=== PATIENT | female | born 1950 | race Caucasian/White ===

== ENCOUNTER 2020-06-21 08:22 | Observation (INO) ==
--- NOTE | 2020-05-24 09:18 | PAT Medication Instructions ---
Medication Instructions Date of Service May 24, 2020 Home Medications cholecalciferol (vitamin D3) [Vitamin D3] 25 mcg PO QAM levothyroxine 100 mcg PO QAM rosuvastatin 5 mg PO QAM valsartan-hydrochlorothiazide 1 tab PO QAM DO NOT take the morning of surgery cholecalciferol (vitamin D3) [Vitamin D3] 25 mcg PO QAM valsartan-hydrochlorothiazide 1 tab PO QAM Take morning of surgery With a small sip of water, OTHERWISE NOTHING TO EAT OR DRINK AFTER MIDNIGHT: levothyroxine 100 mcg PO QAM rosuvastatin 5 mg PO QAM Other Notes If you have any questions please call us at [phone] or [phone] or [phone] or [phone]
--- NOTE | 2020-05-27 10:21 | Anesthesiology Consultation ---
Date of Service May 27, 2020 Assessment & Plan (1) Encounter for pre-operative examination: Chart Review Chart Review: Acceptable Risk for Surgery (pending preop Covid testing ) and Patient seen in Pre Admission Testing Per PAT appt on 05/27/20, patient resides in [facility]. No known Covid positive contacts or Covid related symptoms. Educated patient to follow up with surgeon's office regarding Covid testing. Educated on importance of self quarantining, social distancing and wearing mask in public both for the patient and household contacts. Teaching & Discussion Pre-Anesthesia Teaching/Discussion Notes: Instructed NPO after midnight before surgery,except medications with 15 cc of water. Medication instructions provided according to the PAT guidelines. History Surgery Operation Date: 06/21/20 08:50 Proposed Procedures p Right Total Knee Arthroplasty - Jim Elkins MD Height/Weight Height: 5 ft 6 in Weight: 81.8 kg Allergies Allergy/AdvReac Type Severity Reaction Status Date / Time No Known Allergies Allergy Verified 05/23/20 15:05 Medications Home Medications Medication Instructions Recorded Confirmed Last Taken cholecalciferol (vitamin D3) 25 mcg PO QAM 05/23/20 05/23/20 Unknown [Vitamin D3] levothyroxine 100 mcg PO QAM 05/23/20 05/23/20 Unknown rosuvastatin 5 mg PO QAM 05/23/20 05/23/20 Unknown valsartan-hydrochlorothiazide 1 tab PO QAM 05/23/20 05/23/20 Unknown Past Medical History Medical History Hx of skin cancer, basal cell S/p removal Hx of thyroid cancer s/p total thyroidectomy and radioactive iodine (1979) Hyperlipidemia Hypertension Hypothyroidism Osteoarthritis Exercise / Class Metabolic Activity II 4-5 Yardwork/Stairs/Walk up hill (one flight of stairs - no chest pain or SOB ) Past Family History Family History Mother Family history of diabetes mellitus Family hx of colon cancer Past Surgical History Surgical History H/O total thyroidectomy History of colonoscopy History of tooth extraction 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" Past Anesthesia History No Hx of Anesthesia Complications and No Family Hx of Anesthesia Complications History of PONV No Hx of PONV and No Hx of Motion Sickness Social History Smoking Status: Never smoker Do You Dip or Chew Tobacco: No Hx Alcohol Use: Yes Alcohol type: hard liquor alcohol intake frequency: 0-2 drinks per day Alcohol Intake Frequency Comment: 1 DRINK DAILY Hx Substance Use: No substance use type: does not use Review of Systems Occ snoring- no witnessed apnea- no hx of sleep study Hx of blood transfusion s/p splenectomy Patient denies chest pain, shortness of breath, dyspnea on exertion, reflux, cough, wheezing, palpitations. No hx of seizures, stroke, VT. No hx of blood clots. Physical Exam Vital Signs VITALS BP 115/73 P 78 TEMP 98.0 SP02 100% RESP 16 Constitutional no acute distress ENMT Mouth: no TMJ clicking Thyromental Distance: < 3.5 Finger Breadths (3.0) Mallampati Class: III Veneers to all top front teeth Neck neck extension not limited Respiratory normal respiratory effort; no respiratory distress Auscultation: lungs clear to auscultation bilaterally; no wheezes Cardiovascular Rate/Rhythm: regular rate and regular rhythm Heart Sounds: no murmur Vessels: no carotid bruit Musculoskeletal Spine: no pain with cervical ROM Neurologic moves all extremities Psychiatric Orientation: alert Testing Laboratory Results 05/27/20 10:43 05/27/20 10:43 PT 11.0 Seconds (9.0-12.0) 05/27/20 10:43 INR 1.0 (0.9-1.1) 05/27/20 10:43 APTT 26.6 Seconds (21.0-31.0) 05/27/20 10:43 Blood Type AB Positive 05/27/20 10:43 Antibody Screen NEGATIVE 05/27/20 10:43 Electrocardiogram Date: 09/19/19 Findings: + NSR @ (74) Normal EKG Chest X-Ray Date: 09/19/19 Findings: + NAD Left basilar atelectesis.
[2020-05-27 11:17] LABS: Basophils # (auto) 0.05 K/uL (0-0.2); Basophils % (auto) 0.6 %; Eosinophils # (auto) 0.25 K/uL (0-0.5); Eosinophils % (auto) 3.1 %; Hematocrit (blood only) 38.7 % (37-47); Hemoglobin 12.8 g/dL (12.0-16.0); Immature Granulocytes # (auto) 0.02 K/uL (0.00-0.02); Immature Granulocytes % (auto) 0.2 %; Lymphocytes % (auto) 36.6 %; Mean Corpuscular Hemoglobin 28.9 pg (25-34); Mean Corpuscular Hgb Conc 33.1 g/dL (32-36); Mean Corpuscular Volume 87.4 fL (80-100); Mean Platelet Volume 9.2 fL (7.4-10.4); Monocytes # (auto) 0.55 K/uL (0.11-0.59); Monocytes % (auto) 6.7 %; Neutrophils # (auto) 4.32 K/uL (1.4-6.5); Neutrophils % (auto) 52.8 %; Platelet Count 345 K/uL (130-400); RDW Coefficient of Variation 14.2 % (11.5-14.5); RDW Standard Deviation 45.6 fL (36.4-46.3); Red Blood Count 4.43 M/uL (4.2-5.4); White Blood Count 8.19 K/uL (4.8-10.8)
[2020-05-27 11:28] LABS: Partial Thromboplastin Time 26.6 Seconds (21.0-31.0)
[2020-05-27 12:40] LABS: BUN Creatinine Ratio 28.1 (10-20); Calcium 8.5 mg/dl (8.5-10.1); Est GFR (African American) 105.9; Est GFR (Non-African American) 91.4; Potassium 3.5 mmol/L (3.5-5.1)
--- NOTE | 2020-06-15 18:29 | History and Physical Report ---
DATE OF ADMISSION: 06/21/2020 CHIEF COMPLAINT: Right knee pain and discomfort. HISTORY OF PRESENT ILLNESS: The patient is a 70-year-old female from [place] who presents for treatment of her right knee. She has got a 5-year history of gradually increasing right knee pain and discomfort which has become less responsive to conservative care. No known injury. She has had extensive conservative treatment through orthopedist in [place]. She had shots of cortisone, which really have not helped much recently. She never had viscosupplementation. She has pain in the knee going up and down steps. The more she walks, the more it hurts. She describes posterior knee pain related to a Shanks's cyst as well. She now would like to have her knee fixed. PAST MEDICAL HISTORY: 1. Hypertension. 2. Elevated cholesterol. 3. Thyroid cancer. 4. Mild obesity. PAST SURGICAL HISTORY: 1. Thyroid removal. 2. Splenectomy. ALLERGIES: None. CURRENT MEDICATIONS: Include: 1. Synthroid. 2. Diovan. 3. Levothyroxine. 4. Crestor. 5. Vitamin D. SOCIAL HISTORY: Significant for a 70-year-old female. She is . Lives in [place], [place]. 1-2 drinks per day. Four children. Does not smoke. FAMILY HISTORY: Significant for colon cancer. REVIEW OF SYSTEMS: Significant for multiple aches and pains. No history of DVT or PE. No chest pain or shortness of breath. No bleeding problems. PHYSICAL EXAMINATION GENERAL: Shows a pleasant middle aged female. HEENT: Benign. NECK: Supple, no lymphadenopathy. LUNGS: Clear to auscultation. HEART: Has a regular rate and rhythm. ABDOMEN: Soft, nontender, nondistended. EXTREMITIES: Grossly neurovascularly intact except as follows. Examination of the right knee reveals the patient ambulates independently. She has got slight valgus alignment to her knee, which is increased with weightbearing. She has got moderate soft tissue envelope. Small knee effusion. Range of motion about 5 degrees short of full extension on 120 degrees of flexion. There is no instability. X-RAYS: X-rays of the right knee reviewed. Shows advanced right knee lateral compartment DJD. She has complete loss of her lateral joint space on the 40-degree flexion films. She does have some arthritic changes medially as well as the patellofemoral joint. She has got severe patellofemoral disease. She has got subchondral sclerosis. ASSESSMENT: A 70-year-old female with advanced right knee degenerative joint disease. This was most severe in the lateral and patellofemoral compartments. She has failed conservative care. She has got several other multiple comorbidities including mild obesity, hypertension, elevated cholesterol, and history of thyroid cancer. PLAN: We talked about treatment. She now like to have her right knee fixed. We are going to proceed with right knee replacement. The risks and benefits of this procedure were explained to the patient including but not limited to DVT, PE, , infection, neurological injury, vascular injury, bleeding problem, pain, limited range of motion, stiffness, failure to relieve her symptoms, incomplete relief of symptoms, need for further surgery in future, fracture, leg length inequality, nerve palsy, etc. The patient understands and desires to proceed. Informed consent was obtained. She is planning to be discharged to home using [facility].
[~2020-06-21 08:22] MED LIST: ACETAMINOPHEN 500 MG TAB PO SCH; BUPIVACAINE 0.25% 30 ML VIAL ONE; BUPIVACAINE 0.5 % 5 MG/1 ML PF 10ML VIAL ONE; BUPIVACAINE LIPOSOME/PF 266 MG, BUPIVACAINE/EPINEPHRINE 50 ML, SODIUM CHLORIDE 0.9% 30 ... INFIL SCH; EPINEPHrine INJ 1 MG/ML AMP ONE; FAMOTIDINE 20 MG TAB PO SCH; GABAPENTIN 300 MG CAP PO SCH; LR 500ML BOLUS, THEN 15ML/HR IV SCH; LR 60ML/HR IV SCH; METOCLOPRAMIDE HCL 10 MG TABLET PO SCH; TRANEXAMIC ACID 1,000 MG **IV Intra-op IV SCH; ceFAZolin 2000MG 2,000 MG/15 ML SYR IV SCH
--- NOTE | 2020-06-21 09:00 | History & Physical Bridge Note ---
Date of Service June 21, 2020 History & Physical Bridge Note I have examined the patient, reviewed the History & Physical and in the interval since the performance of the History & Physical I have noted the following changes of clinical significance: no changes noted
[2020-06-21] MEDS ORDERED: MIDAZOLAM HCL 1 MG/ML 2ML VIAL ONE (09:23)
[2020-06-21] MEDS ORDERED: fentaNYL citrate 100 MCG/2 ML VIAL ONE (09:23)
[2020-06-21] MEDS ORDERED: HYDROmorphone INJ 2 MG/ML SYR/VIAL IV PRN (10:26)
[2020-06-21] MEDS ORDERED: ePHEDrine sulfate 50 MG/ML AMP IV PRN (10:26)
[2020-06-21] MEDS ORDERED: fentaNYL citrate 100 MCG/2 ML VIAL IV PRN (10:26)
[2020-06-21] MEDS ORDERED: ONDANSETRON INJ 2 MG/ML 2 ML VIAL IV PRN ×2 (10:26→13:52)
[2020-06-21] MEDS ORDERED: ATROPINE SULFATE 0.1 MG/ML 10ML SYR IV PRN (10:26)
[2020-06-21] MEDS ORDERED: SODIUM CHLORIDE 0.9% PF 50 ML VIAL ONE (11:07)
[2020-06-21] MEDS ORDERED: BACITRACIN INJ 50,000 UNIT VIAL ONE (11:07)
[2020-06-21] MEDS ORDERED: BUPIVACAINE LIPOSOME 1.3% 266 MG/20 ML VIAL ONE (11:07)
[2020-06-21] MEDS ORDERED: BUPIVACAINE 0.25% 30 ML VIAL ONE (11:08)
[2020-06-21] MEDS ORDERED: EPINEPHrine INJ 1 MG/ML AMP ONE (11:08)
[2020-06-21] MEDS ORDERED: PHENYLEPHRINE 100MCG/ML 5ML SYR ONE (11:27)
[2020-06-21] MEDS ORDERED: PROPOFOL IV EMULSION 10 MG/ML 20 ML VIAL IV ONE ×2 (11:27→12:00)
[2020-06-21] MEDS ORDERED: ePHEDrine sulfate 50 MG/ML SYR ONE (12:30)
--- NOTE | 2020-06-21 13:05 | Post Operative Brief Note ---
PG Immediate Post Op with CF Date of Surgery June 21, 2020 Pre & Post Diagnosis Operation Date: 06/21/20 10:40 Pre-Op Diagnosis: Right knee degenerative joint disease Post-Op Diagnosis: Right knee degenerative joint disease I identified the patient and participated in the time-out.: Yes Procedure Operation Date: 06/21/20 10:40 Actual Procedures p Right Total Knee Replacement(Right) - Jim Elkins MD Surgeon Jim Elkins MD Manager Installation Perlita TRINIDAD Estimated Blood Loss 50 Findings Consistent with Post-Op Diagnosis Fluids 700 cc. Specimens Specimen Description: Permanent: A. Right Knee Bone and Tissue Drains Cook Catheter Anesthesia Type Spinal MAC Complications none Disposition Accompanied Patient To Recovery: No Disposition: Recovery Room
--- NOTE | 2020-06-21 13:18 | XRay Report ---
RIGHT KNEE 2 VIEWS History: Right total knee arthroplasty. Degenerative arthritis. Postop. FINDINGS: The patient is status post a right total knee arthroplasty. The hardware is intact. No frac ture or dislocation. Skin gm are in place. IMPRESSION: Right total knee arthroplasty. No evidence for hardware complication. ACT 112: Negative or not required by law. Electronically signed by: Alonso Sanches M.D. 06/21/2020 1:17 PM
--- NOTE | 2020-06-21 13:21 | Anesthesiology Progress Note ---
Date of Service June 21, 2020 Anesthesia Post Procedure Vital Signs Vital Signs: Temp Pulse Resp BP Pulse Ox 06/21/20 09:45 67 20 159/87 H 96 06/21/20 09:01 97.5 F L 70 16 139/65 98 Pain Intensity Right Knee: Pain Intensity: 0 Transfer of Care Handoff Completed per policy Notes Mental Status: alert / awake / arousable and participated in evaluation Patient Amnestic to Procedure: Yes Nausea / Vomiting: adequately controlled Pain: adequately controlled Airway Patency, RR, SpO2: stable & adequate BP & HR: stable & adequate Hydration State: stable & adequate Neuraxial Anesthesia: was administered and sensory block is resolving Anesthetic Complications: no major complications apparent and Pt Satisfied with anesthetic care
[2020-06-21] MEDS ORDERED: MAGNESIUM HYDROXIDE SUSP 30 ML UDC PO PRN (13:52)
[2020-06-21] MEDS ORDERED: METOCLOPRAMIDE HCL INJ 5 MG/ML 2 ML VIAL IV PRN (13:52)
[2020-06-21] MEDS ORDERED: NALOXONE HCL 0.4 MG/1 ML VIAL/CARP IV PRN (13:52)
[2020-06-21] MEDS ORDERED: ALUMINUM/MAGNESIUM SUSP 30 ML UDC PO PRN (13:52)
[2020-06-21] MEDS ORDERED: bisacodyL 10 MG SUPP PR PRN (13:52)
[2020-06-21] MEDS: ACETAMINOPHEN 500 MG TAB PO SCH ×2 (14:29→21:11)
[2020-06-21] MEDS: KETOROLAC TROMETHAMINE 15 MG/ML VIAL IV SCH ×2 (14:30→19:32)
[2020-06-21] MEDS: SODIUM CHLORIDE 0.9% 1000ML 1,000 ML IV SCH (14:30)
[2020-06-21] MEDS: Scopolamine CHECK PATCH PLACEMENT SCH (15:24)
[2020-06-21] MEDS: FERROUS GLUCONATE 324 MG TAB PO SCH (17:16)
[2020-06-21] MEDS: ASCORBIC ACID 500 MG TAB PO SCH (17:16)
[2020-06-21] MEDS: traMADol HCL 50 MG TABLET PO PRN (17:47)
--- NOTE | 2020-06-21 17:50 | Operative Report ---
Post Operative Report Pre & Post Diagnosis Operation Date: 06/21/20 10:40 Pre-Op Diagnosis: Right knee degenerative joint disease Post-Op Diagnosis: Right knee degenerative joint disease I identified the patient and participated in the time-out.: Yes Procedure Operation Date: 06/21/20 10:40 Actual Procedures p Right Total Knee Replacement(Right) - Jim Elkins MD Surgeon Jim Elkins MD Nursing Attendant Perlita TRINIDAD Estimated Blood Loss 50 Findings Consistent with Post-Op Diagnosis Operative findings revealed advanced right knee DJD with extensive grade 4 [id number] disease of the lateral and patellofemoral compartments. She had a valgus deformity to her knee. She had eburnation of the trochlea as well as the lateral compartment. Moderate-sized joint effusion. Fluids 700 cc. Specimens Right knee sent for pathology. Drains None. Anesthesia Type Spinal MAC Complications none Disposition Accompanied Patient To Recovery: No Disposition: Recovery Room Indications Patient is a 70-year-old female has had a several year history of increasing right knee pain discomfort. She has been treated elsewhere with extensive conservative measures which became less successful over time. X-ray showed advanced lateral and patellofemoral compartment arthritis. She elected proceed with total knee arthroplasty. Description of Procedure Operative implants consist of: 1 Biomet Vanguard size 65 right posterior stabilized femoral component. 2. Biomet size 67 tibial tray. 3. 10 mm posterior stabilized polyethylene plus insert. 4. 28 x 8 all polypatella. The patient was taken to the operating room identified and placed on the operating table supine position protectors were properly padded. IV antibiotics 5 by anesthesia team. A spinal anesthetic and abductor canal block had been provided in the holding area. Cook catheter was placed in sterile fashion. Right thigh tourniquet was then placed in the right lower extremities and prepped and draped in the usual sterile fashion. The right leg was elevated exsanguinated with use of an Esmarch and turns placed at 3 mmHg. An anterior approach of the right knee was then performed the longitudinal incision centered over the patella. Sharp dissection got through subcutaneous tissue down to level of the extensor mechanism. A medial parapatellar arthrotomy incision was made. Some subperiosteal dissection was carried out medially. The fat pad was resected from each patella tendon. Lateral patellofemoral ligament was released. Patella was subluxated laterally and the knee was flexed. The osteophytes were taken off distal femur. The ACL and PCL were then released in the distal femur and the tibia subluxated anteriorly. The external tibial alignment jig was then placed in the interface the tibia and adjusted 12 mm medially. Proximal tibial cut was made remove about 3 mm of bone from the medial side. The tibia was then sized to a size 67. Attention drawn the femur. The distal femur was entered with a sharp drill. Intramedullary canal was suction. A right 5 degree valgus cutting guide was placed. The distal femoral cutting block was pinned in place the distal femoral cut was made to take an additional 3 mm of bone off the distal femur. The knee was brought out in extension. I did release some the IT band and posterior lateral capsule in order to equalize the extension gap. Great care was taken throughout the procedure protect the peroneal nerve at all times. The knee was then flexed. The femur was then sized to a size 65. The AP cutting block was pinned parallel to the epicondylar axis which was 5 degrees of external rotation. The anterior cut, anterior chamfer, posterior cut, posterior chamfer cuts were made. Box cutting guide was placed in just slight lateral box cut was made. The knee was flexed. The remnants of medial lateral menisci were excised. The osteophytes were taken off the posterior aspect the femur. I did release the popliteus in order to equalize the flexion gap. The trial femoral component was placed. The tibial tray was pinned in maximum external rotation and the drill and stem punch were used to create defect in proximal tibia for the tibial tray. The knee was then trialed and the 10 mm insert fit most appropriately. There is still just a little bit of medial laxity due to her valgus deformity so I did elect to place the PS plus insert. Attention drawn the patella. The patella was cleaned of all soft tissues. Patella thickness measured 18 mm in thickness some as it was quite worn and was then cut down to 13 mm. Was sized to a size 28 patella. The locals were drilled for the 28 patella. The lateral osteophyte is moved. Patella button was placed. Knee was taken through range of motion patella tracked nicely with no thumbs test. Attention drawn to place the permanent components. All trial components were removed. Bone plug was placed in the distal femur limit blood loss. A double batch of Palacos G cement was mixed. A Biomet Vanguard size 60 right posterior stabilized femoral component, size 67 tibial tray, a 10 mm posterior stabilized polyethylene plus insert and a 28 x 8 all polypatella were then cemented in place. Knee was brought out in full extension total cement hardened. Final cement checkup then performed. The pericapsular tissues were injected with total 100 cc of combination of 20 cc of Exparel, 30 cc normal saline, 50 cc of quarter percent Marcaine with epinephrine. The patient did receive 1 g tranexamic acid. The tourniquet was then let down for final tourniquet time 58 minutes. Hemostasis assured use electrocautery. Extensor mechanism closed with combination 1 PDS suture #1 Vicryl suture in [id number] fashion. Extensor mechanism checked found to be intact. The subcutaneous tissue then closed with 2 Dexon suture in a buried interrupted fashion skin was closed skin gm. Leg was then cleaned and dried and sterile dressing composed Xeroform, 4 x 4's, sterile cast padding, Onur bandage were applied. Patient then transferred to the recovery room in stable condition. Patient tolerated procedure well and there were no complications. Augustin Bhat, my physician stylist assistant, was present for the entire procedure. His assistance was essential and required for appropriate patient positioning, prepping and draping, surgical exposure, performing the technical details of the operation, placement the implants, closure of the wound, and placement of the sterile bandage. I attest to the content of the Intraoperative Record and any orders documented therein. Any exceptions are noted below.
[2020-06-21] MEDS: HYDROmorphone INJ 0.5 MG/0.5 ML SYR IV PRN (18:47)
[2020-06-21] MEDS ORDERED: TRANEXAMIC ACID / 0.7% NACL 1,000 MG/100 ML BAG IV SCH (19:07)
[2020-06-21] MEDS: ceFAZolin 2000MG 2,000 MG/15 ML SYR IV SCH (19:32)
[2020-06-21] MEDS ORDERED: SENNA 8.6 MG TAB PO SCH (21:00)
[2020-06-21] MEDS: ASPIRIN 81 MG ECTAB PO SCH (21:11)
[2020-06-21] MEDS: DOCUSATE SODIUM 100 MG CAP PO SCH (21:11)
[2020-06-22] MEDS: SODIUM CHLORIDE 0.9% 1000ML 1,000 ML IV SCH (00:04)
[2020-06-22] MEDS: Scopolamine CHECK PATCH PLACEMENT SCH ×2 (00:04→07:54)
[2020-06-22] MEDS: HYDROmorphone INJ 0.5 MG/0.5 ML SYR IV PRN ×2 (00:04→07:53)
[2020-06-22] MEDS: KETOROLAC TROMETHAMINE 15 MG/ML VIAL IV SCH ×2 (02:24→07:53)
[2020-06-22] MEDS: ceFAZolin 2000MG 2,000 MG/15 ML SYR IV SCH (02:24)
[2020-06-22] MEDS: traMADol HCL 50 MG TABLET PO PRN ×2 (05:05→11:38)
[2020-06-22] MEDS: ACETAMINOPHEN 500 MG TAB PO SCH (05:05)
[2020-06-22] MEDS ORDERED: LEVOTHYROXINE SODIUM 100 MCG TABLET PO SCH (06:30)
[2020-06-22 08:11] LABS: Hematocrit (blood only) 32.6 % (37-47); Hemoglobin 10.9 g/dL (12.0-16.0); Mean Corpuscular Hemoglobin 29.2 pg (25-34); Mean Corpuscular Hgb Conc 33.4 g/dL (32-36); Mean Corpuscular Volume 87.4 fL (80-100); Mean Platelet Volume 9.3 fL (7.4-10.4); Platelet Count 274 K/uL (130-400); RDW Coefficient of Variation 14.3 % (11.5-14.5); RDW Standard Deviation 45.7 fL (36.4-46.3); Red Blood Count 3.73 M/uL (4.2-5.4); White Blood Count 7.87 K/uL (4.8-10.8)
[2020-06-22] MEDS: ASPIRIN 81 MG ECTAB PO SCH (08:29)
[2020-06-22] MEDS: ASCORBIC ACID 500 MG TAB PO SCH (08:29)
[2020-06-22] MEDS: DOCUSATE SODIUM 100 MG CAP PO SCH (08:30)
[2020-06-22] MEDS: FERROUS GLUCONATE 324 MG TAB PO SCH (08:30)
[2020-06-22 08:47] LABS: BUN Creatinine Ratio 24.3 (10-20); Calcium 7.6 mg/dl (8.5-10.1); Creatinine Clr Calc Pharmacy 93.4 ml/min; Est GFR (Non-African American) 92.4; Potassium 3.9 mmol/L (3.5-5.1)
[2020-06-22] MEDS ORDERED: CHOLECALCIFEROL 1,000 UNITS 25 MCG TAB PO SCH (09:00)
[2020-06-22] MEDS ORDERED: hydroCHLOROthiazide 25 MG TAB PO SCH (09:00)
[2020-06-22] MEDS ORDERED: ROSUVASTATIN CALCIUM 5 MG TAB PO SCH (09:00)
[2020-06-22] MEDS ORDERED: MULTIVITAMIN TAB PO SCH (09:00)
[2020-06-22] MEDS ORDERED: VALSARTAN 80 MG TAB PO SCH (09:00)
--- NOTE | 2020-06-22 13:34 | Progress Notes ---
DATE: 06/22/2020 SUBJECTIVE: A 70-year-old female postop day 1 from right knee replacement. She is doing pretty well. Some pain, but controlled. Had a pretty reasonable night. No chest pain or shortness of breath. Not feeling dizzy or lightheaded. She would like to go home if possible. OBJECTIVE: VITAL SIGNS: Temperature is 36.7. Vital signs stable. GENERAL: Shows a pleasant, middle-aged female. She is sitting up in bed, looks pretty comfortable. EXTREMITIES: Examination of the right leg reveals the leg to be well aligned. Dressing is clean, dry and intact. She can dorsiflex and plantarflex her foot appropriately. She can do a pretty good straight leg raise. She is neurologically intact. LABORATORY DATA: Hemoglobin 10.9. Hematocrit 32.6. Electrolytes are pending. ASSESSMENT: A 70-year-old female postoperative day 1 from a right knee replacement, doing pretty well. Pain is controlled. She is neurologically intact. PLAN: 1. DVT prophylaxis including thigh-high TEDs, SCDs, and aspirin twice a day. 2. PT/OT. Weight bear as tolerated. Right total knee protocol. 3. Pain control, doing well with current pain regimen. 4. Mild anemia. She is asymptomatic. Just encouraged a good p.o. intake with multivitamin. 5. Disposition: She is planning to be discharged to home with some home health. She would like to go home today. We will see how therapy goes today.
--- NOTE | 2020-06-24 15:45 | Discharge Summary ---
Date of Service June 24, 2020 Admission HPI Per Admitting Provider Documented in the H & P Admission Exam (Per Admitting) Constitutional Documented in the H & P Discharge Data Consultations 06/21/20 13:52 Consult Case Management - Discharge Planning Routine Procedures Performed Operation Date: 06/21/20 10:40 Actual Procedures p Right Total Knee Replacement(Right) - Jim Elkins MD Hospital Course (1) Status post total right knee replacement: This patient is a 70 year old female admitted on 06/21/20 and underwent total knee arthroplasty. She tolerated the procedure well and there were no complications. Transferred to the PACU post op and later to the orthopedic floor for further care. She was given ancef for antibiotic prophylaxis. She was also given ERIC stockings, SCDs, and aspirin for DVT prophylaxis. Hemoglobin, hematocrit, and vital signs were monitored during her hospital stay and remained stable. Did not require any blood transfusions. There were no complications during her hospital stay. By post op day #1 the patient was tolerating a regular diet, pain was reasonably controlled with oral pain medicine, and she was participating in physical therapy. On post op day #1 the patient was discharged home and set up with home health care. She was given printed discharge instructions including prescriptions for extra strength tylenol, aspirin, and tramadol. Continue physical therapy, weight bearing as tolerated. Continue ERIC stockings. Follow up approximately 2 weeks post op or sooner if there are problems or concerns. Coding Level of Care Code None Diagnoses Status post total right knee replacement Z96.651
== END 2020-06-22 13:25 | disposition home health service (06) ==
LOC: 3E 08:22 → ASU 08:22

== ENCOUNTER 2022-09-09 11:49 | Observation (INO) ==
--- NOTE | 2022-09-03 11:23 | Anesthesiology Consultation ---
Date of Service September 03, 2022 Assessment & Plan (1) Encounter for pre-operative examination: Chart Review Chart Review: Acceptable Risk for Surgery and Patient NOT seen in Pre Admission Testing COVID screening: Per PAT nursing assessment on 09/03/22, No known COVID-19 positive contacts or current COVID-19 related symptoms. Travel screen negative. Patient vaccinated for Covid. At surgeon discretion if preop Covid testing being done. Pt had R TKA 06/2020; SAB L3-4 without issue Pt currently scheduled as 23 hour observation. If surgeon decides to change patient to Same Day Joint, patient would be acceptable risk for outpatient TKA, pending patient is motivated, has good support and surgeon's office completes [facility] Program preop requirements (d/w ). History Surgery Operation Date: 09/09/22 12:45 Proposed Procedures p Left Total Knee Arthroplasty - Jim Elkins MD Height/Weight Height: 5 ft 6 in Weight: 81.647 kg Allergies Allergy/AdvReac Type Severity Reaction Status Date / Time oxycodone AdvReac Mild Nausea Verified 09/03/22 09:49 Medications Home Medications Medication Instructions Recorded Confirmed Last Taken cholecalciferol (vitamin D3) 25 25 mcg PO QAM 05/23/20 09/03/22 06/07/20 mcg (1,000 unit) tablet (Vitamin D3) levothyroxine 100 mcg tablet 100 mcg PO QAM 05/23/20 09/03/22 06/21/20 05:30 rosuvastatin 5 mg tablet 5 mg PO QAM 05/23/20 09/03/22 06/21/20 05:30 valsartan 160 1 tab PO QAM 05/23/20 09/03/22 06/20/20 08:00 mg-hydrochlorothiazide 12.5 mg tablet (Diovan HCT) amoxicillin 500 mg tablet 2,000 mg PO ONCE #4 tabs 08/26/20 09/03/22 Unknown acetaminophen 500 mg tablet 500 mg PO QID PRN Pain 09/03/22 09/03/22 Unknown Past Medical History Medical History (Updated 09/03/22 @ 11:21 by Alyssa King PA-C) History of COVID-19 12/2021- fatigue, achy, congestion, no hospitalization, no current issues Hx of skin cancer, basal cell S/p removal Hx of thyroid cancer s/p total thyroidectomy and radioactive iodine (1979). 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" Social History Smoking Status: Never smoker Do You Dip or Chew Tobacco: No Hx Alcohol Use: Yes Alcohol type: wine alcohol intake frequency: 0-2 drinks per day Hx Substance Use: No substance use type: does not use Lab Results Anesthesia Preop Results Results Anesthesia Widget: WBC 7.57 K/ul (4.8-10.8) 08/28/22 Hgb 13.0 g/dl (12.0-16.0) 08/28/22 Hct 36.9 % (34.1-44.9) 08/28/22 Plt 321 K/uL (130-400) 08/28/22 Na 140 mmol/L (136-145) 08/28/22 K 4.3 mmol/L (3.5-5.1) 08/28/22 Cl 103 mmol/L (98-107) 08/28/22 CO2 32 mmol/L (21-32) 08/28/22 BUN 17 mg/dl (6-23) 08/28/22 Creat 0.69 mg/dl (0.6-1.2) 08/28/22 Glucose Level 97 mg/dl (70-99(Fasting)) 08/28/22 PT 10.9 Seconds (9.0-12.0) 08/28/22 PTT 26.6 Seconds (21.0-31.0) 08/28/22 INR 1.0 (0.9-1.1) 08/28/22 Blood Type AB Positive 08/28/22 Antibody Screen NEGATIVE 08/28/22 Testing Electrocardiogram Date: 08/28/22 Findings: + NSR @ (73bpm) Chest X-Ray Date: 08/28/22 Findings: + NAD
[~2022-09-09 11:49] MED LIST changes: -BUPIVACAINE 0.25% 30 ML VIAL ONE; +CeleBREX 200 MG CAP PO SCH; -EPINEPHrine INJ 1 MG/ML AMP ONE; -GABAPENTIN 300 MG CAP PO SCH; +ROPIVACAINE 0.5% 5 MG/ML 30 ML VIAL ONE
[2022-09-09] MEDS ORDERED: fentaNYL citrate 100 MCG/2 ML VIAL IV PRN (12:17)
[2022-09-09] MEDS ORDERED: ONDANSETRON INJ 2 MG/ML 2 ML VIAL IV PRN (12:17)
[2022-09-09] MEDS ORDERED: ePHEDrine sulfate 50 MG/ML AMP IV PRN (12:17)
[2022-09-09] MEDS ORDERED: ATROPINE SULFATE 0.1 MG/ML 10ML SYR IV PRN (12:17)
[2022-09-09] MEDS ORDERED: MIDAZOLAM HCL 1 MG/ML 2ML VIAL ONE ×2 (12:20→12:22)
[2022-09-09] MEDS ORDERED: PROPOFOL IV EMULSION 10 MG/ML 20 ML VIAL IV ONE (12:34)
--- NOTE | 2022-09-09 12:34 | History & Physical Bridge Note ---
Date of Service September 09, 2022 History & Physical Bridge Note I have examined the patient, reviewed the History & Physical and in the interval since the performance of the History & Physical I have noted the following changes of clinical significance: no changes noted
[2022-09-09] MEDS ORDERED: SODIUM CHLORIDE 0.9% PF 50 ML VIAL ONE (13:21)
[2022-09-09] MEDS ORDERED: BUPIVACAINE LIPOSOME 1.3% 266 MG/20 ML VIAL ONE (13:21)
[2022-09-09] MEDS ORDERED: BUPIVACAINE/EPINEPHRINE 0.25% 1:200,000 30 ML VIAL ONE (13:21)
--- NOTE | 2022-09-09 15:22 | Operative Report ---
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 She. Extensor grade 4 [id number] disease of the lateral compartment with some spotty changes in the patellofemoral compartment. She had a valgus deformity to her knee. Fairly large knee joint effusion. Specimens Knee sent for pathology. Anesthesia Type Spinal MAC Complications none Disposition Accompanied Patient To Recovery: No Indications Patient is 72-year-old female is had a long history of knee pain and discomfort describes gotten worse over time. She underwent a right knee replacement little over 2 years ago and is done well from this. She continues to be limited by left knee pain and discomfort. She failed conservative measures. She elected proceed with left total knee arthroplasty. Description of Procedure Operative implants consist of: 1 Biomet Vanguard size 67.5 left posterior stabilized femoral component. 2. Biomet size 67 tibial tray. 3. 12 mm posterior stabilized polyethylene insert. 4. 28 x 8 all Paller patella. The patient was taken the operating, identified, and placed on the operating table supine position protectors were properly padded. IV antibiotics tried by anesthesia team. A spinal anesthetic had been implemented holding area. Cook catheter was placed in sterile fashion. A left thigh tent was then placed in the left lower extremities then prepped and draped in usual sterile fashion. The left leg was elevated exsanguinated with use of an Esmarch and the tourniquet was placed at 300 mmHg. An anterior posterior left knee was then performed to longitudinal incision centered over the patella. Sharp dissection was carried through subcutaneous tissue down the extensor mechanism. A medial parapatellar arthrotomy incision was made. Some subperiosteal dissection was carried out medially. The fat pad was resected from Neath patella tendon. The lateral patellofemoral ligament was released. Patella subluxated laterally and the knee was flexed. The osteophytes were taken off distal femur. The ACL and PCL were then released from distal femur the tibia subluxated anteriorly. The external tibial alignment jig was then placed in the interface the tibia and adjusted 12 mm medially. Proximal tibial cut was made remove about 3 to 4 mm of bone from the medial side. The tibia was then sized to a size 67. Attention drawn the femur. The distal femur was held with a sharp drill. Intramedullary canal was suction. A left five 5 degree valgus cutting guide was placed. The distal femoral cutting guide was then pinned in place. The distal femoral cut was made to take an additional 3 mm of bone off distal femur. The femur was then sized and sized to a 67.5. We did downsize this about a half a size. The AP cutting block was pinned parallel to the epicondylar axis which is about 8 degrees of external rotation. She did have a fairly hypoplastic lateral femoral condyle. The anterior cut, anterior chamfer, posterior cut, posterior chamfer cuts were made. The box cutting guide was placed in just slight lateral box cut was made. The knee was flexed. The remnants of the medial and lateral menisci were excised. The osteophytes were taken off the posterior aspect the femur. I did release the popliteus tendon in order to equalize the flexion gap. We also did some pie crusting the IT band and a bit to equalize extension gap. A trial femoral component was placed. Tibial tray was pinned in maximum external rotation and the drill and stem punch were used to create defect in proximal tibia for the tibial tray. Knee was then trialed and the 12 mm insert fit most appropriately. Attention drawn the patella. The patella was cleaned of all soft tissues. Patella thickness measured 20 mm in thickness was cut down 13. Was sized to a size 28 patella. The lug holes were drilled for the 28 patella. Lateral osteophytes removed. Patella button was placed. Knee was taken through range of motion patella tracked nicely with no thumbs test. Attention drawn to placing permanent components. Nupathe all trial components were removed. Bone plug was placed in the distal femur limit blood loss. Double batch Palacos G cement was mixed. A 67.5 left posterior stabilized femoral component, size 67 tibial tray, 12 mm posterior stabilized insert and a 28 x 8 all Paller patella then cemented in place. Knee was brought out in full extension total cement hardened. Final cement check was then performed. Pericapsular tissues were injected with total of 100 cc of combination of 20 cc of Exparel, 30 cc normal saline, 50 cc of quarter percent Marcaine with epinephrine. Patient did receive 1 g tranexamic acid but the tourniquet was then let down for turn time 54 minutes but hemostasis assured use electrocautery. Extensor mechanism closed with combination 1 PDS suture #1 Vicryl suture in a [id number] fashion. Extensor mechanism checked found to be intact with subcutaneous tissues then closed with 2 Dexon suture in buried erupted fashion skin was closed skin gm. Leg was then cleaned and dried a sterile dressing was Xeroform, 4 x 4's, sterile cast padding, Onur bandage were applied. Patient then transferred to the recovery room in stable condition. Patient tolerated the procedure well and there were no complications. Augustin Bhat, my physician commercial loan assistant, was present for the entire procedure. His assistance was essential and required for appropriate patient positioning, prepping and draping, surgical exposure, performing the technical details of the operation, placement the implants, closure of the wound, and placement of the sterile bandage. I attest to the content of the Intraoperative Record and any orders documented therein. Any exceptions are noted below.
--- NOTE | 2022-09-09 15:45 | XRay Report ---
LEFT KNEE 2 VIEWS History: Left total knee arthroplasty. Degenerative arthritis. Postop. FINDINGS: The patient is status post a left total knee arthroplasty. The hardware is intact. No fract ure or dislocation. Skin gm are in place. IMPRESSION: Left total knee arthroplasty. No evidence for hardware complication. ACT 112: Negative or not required by law. Electronically signed by: Alonso Sanches M.D. 09/09/2022 3:44 PM
[2022-09-09] MEDS ORDERED: ALUMINUM/MAGNESIUM SUSP 30 ML UDC PO PRN (16:29)
[2022-09-09] MEDS ORDERED: bisacodyL 10 MG SUPP PR PRN (16:29)
[2022-09-09] MEDS ORDERED: METOCLOPRAMIDE HCL INJ 5 MG/ML 2 ML VIAL IV PRN (16:29)
[2022-09-09] MEDS ORDERED: MAGNESIUM HYDROXIDE SUSP 30 ML UDC PO PRN (16:29)
[2022-09-09] MEDS ORDERED: NALOXONE HCL 0.4 MG/1 ML VIAL/CARP IV PRN (16:29)
[2022-09-09] MEDS: SODIUM CHLORIDE 0.9% 1000ML 1,000 ML IV SCH (16:37)
--- NOTE | 2022-09-09 16:41 | Anesthesiology Progress Note ---
Date of Service September 09, 2022 Anesthesia Post Procedure Vital Signs Vital Signs: Temp Pulse Resp BP Pulse Ox O2 Del Method 09/09/22 16:30 97.3 F L 83 18 159/73 H 96 Room Air 09/09/22 16:10 97.3 F L 80 12 154/64 H 94 Room Air 09/09/22 16:00 79 13 150/62 H 95 Room Air 09/09/22 15:50 84 15 157/64 H 96 Room Air 09/09/22 15:40 88 21 139/69 95 Room Air 09/09/22 15:30 82 12 143/58 H 97 Room Air 09/09/22 15:23 97.7 F 91 H 14 107/82 96 Room Air Transfer of Care Handoff Completed per policy Notes Mental Status: alert / awake / arousable and participated in evaluation Patient Amnestic to Procedure: Yes Nausea / Vomiting: adequately controlled Pain: adequately controlled Airway Patency, RR, SpO2: stable & adequate BP & HR: stable & adequate Hydration State: stable & adequate Neuraxial Anesthesia: was administered and sensory block is resolving Anesthetic Complications: no major complications apparent and Pt Satisfied with anesthetic care
[2022-09-09] MEDS: KETOROLAC TROMETHAMINE 15 MG/ML VIAL IV SCH ×2 (17:44→22:21)
[2022-09-09] MEDS: ASCORBIC ACID 500 MG TAB PO SCH (17:46)
[2022-09-09] MEDS: ASPIRIN 81 MG ECTAB PO SCH (20:10)
[2022-09-09] MEDS: traMADol HCL 50 MG TABLET PO PRN (20:10)
[2022-09-09] MEDS: DOCUSATE SODIUM 100 MG CAP PO SCH (20:11)
[2022-09-09] MEDS ORDERED: SENNA 8.6 MG TAB PO SCH (21:00)
[2022-09-09] MEDS ORDERED: TRANEXAMIC ACID / 0.7% NACL 1,000 MG/100 ML BAG IV SCH (21:30)
[2022-09-09] MEDS: ACETAMINOPHEN 500 MG TAB PO SCH (21:36)
[2022-09-09] MEDS: ceFAZolin 2000MG 2,000 MG/15 ML SYR IV SCH (21:37)
[2022-09-09] MEDS: ONDANSETRON INJ 2 MG/ML 2 ML VIAL IV PRN (22:21)
[2022-09-09] MEDS: HYDROmorphone INJ 0.5 MG/0.5 ML SYR IV PRN (23:23)
[2022-09-10] MEDS: HYDROmorphone INJ 0.5 MG/0.5 ML SYR IV PRN (03:37)
[2022-09-10] MEDS: SODIUM CHLORIDE 0.9% 1000ML 1,000 ML IV SCH (03:55)
[2022-09-10] MEDS: ACETAMINOPHEN 500 MG TAB PO SCH (05:44)
[2022-09-10] MEDS: KETOROLAC TROMETHAMINE 15 MG/ML VIAL IV SCH ×2 (05:44→11:24)
[2022-09-10] MEDS: ceFAZolin 2000MG 2,000 MG/15 ML SYR IV SCH (05:44)
[2022-09-10] MEDS ORDERED: LEVOTHYROXINE SODIUM 100 MCG TABLET PO SCH (06:30)
[2022-09-10] MEDS ORDERED: dexAMETHasone 10 MG in SYRINGE 0 ML IV SCH (08:00)
[2022-09-10] MEDS: traMADol HCL 50 MG TABLET PO PRN (08:40)
[2022-09-10] MEDS: ONDANSETRON INJ 2 MG/ML 2 ML VIAL IV PRN (08:40)
[2022-09-10 08:45] LABS: Calcium 7.8 mg/dl (8.5-10.1); Creatinine Clr Calc Pharmacy 88.5 ml/min; Est GFR (African American) 104.4 ml/min; Est GFR (Non-African American) 90.1 ml/min; Potassium 3.6 mmol/L (3.5-5.1)
[2022-09-10] MEDS ORDERED: VALSARTAN 80 MG TAB PO SCH (09:00)
[2022-09-10] MEDS ORDERED: CHOLECALCIFEROL 1,000 UNITS 25 MCG TAB PO SCH (09:00)
[2022-09-10] MEDS ORDERED: ROSUVASTATIN CALCIUM 5 MG TAB PO SCH (09:00)
[2022-09-10] MEDS ORDERED: hydroCHLOROthiazide 25 MG TAB PO SCH (09:00)
[2022-09-10] MEDS ORDERED: DOCUSATE SODIUM/SENNA 50/8.6MG TAB PO SCH (09:00)
[2022-09-10] MEDS ORDERED: MULTIVITAMIN TAB PO SCH (09:00)
[2022-09-10 09:29] LABS: Hematocrit (blood only) 29.8 % (37.0-47.0); Hemoglobin 10.4 g/dl (12.0-16.0); Mean Corpuscular Hemoglobin 30.1 pg (25.0-34.0); Mean Corpuscular Hgb Conc 34.9 g/dL (32.0-36.0); Mean Corpuscular Volume 86.4 fL (80.0-100.0); Platelet Count 275 K/uL (130-400); RDW Coefficient of Variation 13.9 % (11.5-14.5); RDW Standard Deviation 43.8 fL (36.4-46.3); Red Blood Count 3.45 M/uL (4.20-5.40); White Blood Count 10.43 K/ul (4.8-10.8)
[2022-09-10] MEDS: DOCUSATE SODIUM 100 MG CAP PO SCH (09:41)
[2022-09-10] MEDS: ASCORBIC ACID 500 MG TAB PO SCH (09:45)
[2022-09-10] MEDS: ASPIRIN 81 MG ECTAB PO SCH (09:45)
--- NOTE | 2022-09-10 13:51 | Progress Notes ---
SUBJECTIVE: Postoperative day 1 from a left total knee replacement. Patient is a 72-year-old female, now postoperative day 1 from left knee replacement. She is doing pr sophia well. Some pain, but not unbearable. Therapy went well. No chest pain or shortness of breath. Not feeling dizzy or lightheaded. Hoping to go home. OBJECTIVE: VITAL SIGNS: Temperature 36.5. Vital signs are stable. GENERAL: Shows a pleasant, elderly female. She is sitting up in bed and looks ready to go. LUNGS: Clear to auscultation. HEART: Regular rate and rhythm. ABDOMEN: Soft, nontender, nondistended. EXTREMITIES: Grossly neurovascularly intact except as follows. Examination of her left leg reveals the dressing to be clean, dry and intact. She can dorsiflex and plantarflex her foot appropriately. She is neurologically intact. LABORATORY DATA: Hemoglobin 10.4. Hematocrit 29.8. Electrolytes are stable. ASSESSMENT: A 72-year-old female postoperative day 1 from left knee replacement, doing pretty well. Pain is controlled. She is neurologically intact. Therapy went pretty well. She is hoping to go h ome. PLAN: 1. DVT prophylaxis include thigh-high TEDs, SCDs, and aspirin twice a day. 2. PT, OT, weightbear as tolerated. Left total knee protocol. 3. Pain control, doing okay with current pain regimen. 4. Disposition: Plan to discharge to home with some home health likely later today. Job ID: [id number]
--- NOTE | 2022-09-14 06:45 | Discharge Summary ---
Date of Service September 14, 2022 Discharge Data Procedures Performed Operation Date: 09/09/22 12:30 Actual Procedures p Left Total Knee Arthroplasty, Cemented(Left) - Jim Elkins MD Hospital Course (1) Status post total left knee replacement: This is a 72 year old patient admitted on 09/09/22 and underwent total knee arthroplasty. She tolerated the procedure well and there were no complications. Transferred to the PACU post op and later to the orthopedic floor for further care. She was given ancef for antibiotic prophylaxis. She was also given ERIC stockings, SCDs, and aspirin for DVT prophylaxis. Hemoglobin, hematocrit, and vital signs were monitored during her hospital stay and remained stable. Did not require any blood transfusions. There were no complications during her hospital stay. By post op day #1 the patient was tolerating a regular diet, pain was reasonably controlled with oral pain medicine, and she was participating in physical therapy. On post op day #1 the patient was discharged home and set up with home health care. She was given printed discharge instructions including prescriptions for extra strength tylenol, aspirin, ketorolac, zofran, senokot, and tramadol. Continue physical therapy, weight bearing as tolerated. Continue ERIC stockings. Follow up approximately 2 weeks post op or sooner if there are problems or concerns. Coding Level of Care Code None Diagnoses Status post total left knee replacement Z96.652
== END 2022-09-10 13:10 | disposition home health service (06) ==
LOC: ASU 11:49 → 3W 11:49